=== PATIENT | male | born 1985 | race Caucasian/White ===

== ENCOUNTER → 2019-05-30 08:18 | Outpatient (BNVA) | payer MEDICARE, MEDICAID, SELFPAY | PROVIDERS: Family Provider Internal Medicine; PCP Internal Medicine; Visit Provider Specialist | DX: F31.9 Bipolar disorder, unspecified (principal) | CPT/HCPCS: 96372 ==

== ENCOUNTER → 2019-08-29 08:03 | Outpatient (BNVA) | payer MEDICARE, MEDICAID, SELFPAY | PROVIDERS: Family Provider Internal Medicine; PCP Internal Medicine; Visit Provider Specialist | DX: F52.8 Other sexual dysfunction not due to a substance or known physiological condition (principal) | CPT/HCPCS: 96372 ==

== ENCOUNTER 2019-10-15 17:00 | Emergency (ER) | payer MEDICARE, MEDICAID, SELFPAY ==
[2019-10-15 17:09] VITALS: BP 111/64; PULSE 112; RESP 18; TEMP 36.8; O2SAT 97
--- NOTE | 2019-10-15 18:13 | W.ED.NAVMDI ---
HPI - Nausea/Vomiting/Diarrhea General: Chief complaint: Nausea/Vomiting/Diarrhea Stated complaint: n/v Time Seen by Provider: 10/15/19 18:02 Source: patient and family Mode of arrival: ambulatory Limitations: no limitations History of Present Illness: HPI Narrative: 33-year-old male with a history of autism family states has had decreased appetite and complain abdominal pain over the last 2 days. Patient has had normal bowel movements. Patient states to me that his abdomen is hurting diffusely. He has had no vomiting but states he just does not feel like eating. Denies any worsening or improving factors. Associated nausea: Yes Associated symtoms: Reports nausea; Denies chest pain, dysuria or headache(s) Review of Systems Const: Denies: fever(s), chills, body aches or change in appetite Eyes: Denies: blurry vision or eye discomfort ENMT: Denies: throat pain or dental pain Card: Denies: chest pain Resp: Denies: dyspnea GI: Reports: abdominal pain, nausea and vomiting : Denies: dysuria Musc: Denies: neck pain or back pain Skin/Breast: Denies: rash Neuro: Denies: headache(s) Psych: Denies: depression Chemo/Lymph: Denies: easy bruising All/Imm: Denies: urticaria Physical Exam Const: COMMON NORMALS: no acute distress, patient oriented x3 and healthy appearing HENMT: COMMON NORMALS: normocephalic and atraumatic HEAD & SCALP: normocephalic and atraumatic Eye: COMMON NORMALS: Equal, round and reactive pupils present and EOMs intact bilaterally PUPIL: Yes Equal, round and reactive pupils present Neck/C-Spine: COMMON NORMALS: full ROM and supple Chest: COMMONS NORMALS: normal inspection of the chest and normal palpation of entire chest wall Resp: COMMON NORMALS: normal respiratory effort, No retractions, No use of accessory muscles and clear to auscultation bilaterally AUSCULTATION: clear to auscultation bilaterally Cardio: COMMON NORMALS: regular rate, regular rhythm and No murmurs present (Cardio) RATE: regular rate RHYTHM: regular rhythm GI: COMMON NORMALS: Normal to inspection, nondistended, normoactive bowel sounds present, Soft to palpation, non-tender and no masses PALPATION: Yes Soft to palpation Extremity: COMMON NORMALS: normal to inspection and full ROM Neuro: COMMON NORMALS: patient oriented x3, moves all extremities and no focal motor deficits Psych: COMMON NORMALS: mental status grossly normal, Normal thought process present and cooperative THOUGHT PROCESS: Normal thought process present Skin: COMMON NORMALS: no rashes or lesions noted and no wounds GENERAL SKIN EXAM: no rashes or lesions noted Course Vital Signs: Vital signs: Vital Signs Temperature 98.3 F 10/15/19 17:09 Pulse Rate 90 10/15/19 20:06 Respiratory Rate 18 10/15/19 20:06 Blood Pressure 111/64 10/15/19 17:09 Pulse Oximetry 99 10/15/19 20:06 MDM - Nausea/Vomiting/Diarrhea MDM Narrative: Medical decision making narrative: Librado presents here with abdominal pain along with nausea decreased appetite. He feels improved after Zofran and CT scan and lab work here are all normal. He is stable for discharge will prescribe Zofran for home. Is no signs of acute surgical process. He is to follow-up with his primary care doctor in 3 to 5 days and return to ER if worsening. Lab Data: Labs: Lab Results 10/15/19 10/15/19 Range/Units 18:25 18:25 WBC 6.9 (4.0-10.0) 10^3/ uL RBC 4.78 (4.1-5.3) 10^6/u L Hgb 13.4 (11.7-16.6) g/dL Hct 39.9 L (42.0-52.0) % MCV 83.5 (80-94) fL MCH 28.0 (28.0-34.0) pg MCHC 33.6 (30.0-36.0) g/dL RDW 12.5 (12.1-15.1) % Plt Count 244 (130-400) 10^3/c mm MPV 10.2 (7.4-10.4) fL Neut % (Auto) 64.5 % Lymph % (Auto) 25.7 % [place] % (Auto) 6.9 % Eos % (Auto) 2.3 % Baso % (Auto) 0.3 % Neut # (Auto) 4.47 (1.8-7.7) 10^3/u L Lymph # (Auto) 1.8 (0.8-4.8) 10^3/u L [place] # (Auto) 0.5 (0.2-0.9) 10^3/u L Eos # (Auto) 0.2 (0.0-0.8) 10^3/u L Baso # (Auto) 0.0 (0.0-0.1) 10^3/u L Nucleated RBC % (a uto) 0 % Nucleated RBCs # 0.0 /100WBC Sodium 139 (136-145) mmol/L Potassium 3.4 L (3.5-5.1) mmol/L Chloride 103 (98-107) mmol/L Carbon Dioxide 25 (22-29) mmol/L Anion Gap 14.4 (5-19) BUN 8 (6-20) mg/dL Creatinine 0.7 (0.7-1.2) mg/dL GFR Calculation 129.9 (90-130) mL/min Glucose 113 (65-115) mg/dL Calculated Osmolal ity 285 (285-295) mOsm/k g Calcium 8.7 (8.5-10.5) mg/dL Total Bilirubin 0.8 (0.15-1.2) mg/dL AST 15 (0-40) U/L ALT 11 (0-41) U/L Alkaline Phosphata se 109 (40-130) IU/L Total Protein 7.2 (6.6-8.7) g/dL Albumin 4.4 (3.5-5.2) g/dL Globulin 2.8 (1.3-4.6) g/dL Lipase 40 (13-60) U/L Imaging Data^: CT Abd/Pel: Radiologist's impression: [place] [address] CT Scan Report Signed Patient: Librado Graves Unit #: [id number] : 1985 Age/Sex: 33 / M ADM Date: 10/15/19 Loc: ER Room/Bed: Attending Dr: Ordering Provider/Ordering MD: Anjali Cadet MD Date of Service: 10/15/19 Procedure(s): CT abdomen pelvis w con* [id number] Accession Number(s): [id number] Report Number: [id number] PROCEDURE INFORMATION: Exam: CT Abdomen And Pelvis With Contrast Exam date and time: 10/15/2019 6:37 PM Age: 33 years old Clinical indication: Abdominal pain; Generalized; Patient HX: Vomiting, abd pain x 3 days TECHNIQUE: Imaging protocol: Computed tomography of the abdomen and pelvis with intravenous contrast. Radiation optimization: All CT scans at this facility use at least one of these dose optimization techniques: automated exposure control; mA and/or kV adjustment per patient size (includes targeted exams where dose is matched to clinical indication); or iterative reconstruction. Contrast material: OMNIPAQUE 300; Contrast volume: 95 ml; Contrast route: INTRAVENOUS (IV); COMPARISON: CT abdomen pelvis w con* [id number] 01/17/2017 7:58 PM RADIATION DOSE METRICS: Total DLP (mGy-cm): 1059.33 FINDINGS: There is minimal atelectasis within the lung bases. The visualized bony structures are unremarkable. There is no liver mass. There is no intrahepatic biliary dilatation. No gallstones are seen within the gallbladder. The pancreas is unremarkable. The spleen is unremarkable. There is no adrenal mass. There is no hydronephrosis. There are no renal calculi. There is no perinephric stranding. There is no renal mass. The aorta is normal in caliber. The IVC is normal in caliber. There is no retroperitoneal adenopathy. Stable small mesenteric lymph nodes are present especially in the right mid abdomen. The stomach is unremarkable. The small bowel loops in the upper abdomen are nondistended with no bowel wall thickening. The colonic structures within the upper abdomen are normal in caliber with no bowel wall thickening. Within the pelvis: A normal appendix is seen within the right lower quadrant. The bladder is nondistended. The prostate gland and seminal vesicles are normal. There is no free fluid within the pelvis. There is no inguinal adenopathy. There is no pelvic adenopathy. The bowel loops within the pelvis are unremarkable. CT/CT abdomen pelvis w con* [id number] IMPRESSION: 1. No evidence for bowel obstruction or bowel wall thickening. 2. No acute inflammatory process is seen within the abdomen or pelvis. 3. Stable small mesenteric lymph nodes in the right mid abdomen. Discharge Plan Discharge Patient Disposition: Home, Self-Care Clinical Impression: Abdominal pain Qualifiers: Abdominal location: generalized Qualified Code(s): R10.84 - Generalized abdominal pain Condition: Stable Prescriptions: New ondansetron 4 mg tablet,disintegrating 4 mg PO Q6H PRN (Reason: nausea and vomiting) Qty: 14 RF: 0 No Action olanzapine 15 mg tablet PO RF: 0 risperidone 2 mg tablet 2 mg PO RF: 0 trazodone 50 mg tablet PO RF: 0 clonidine HCl 0.1 mg tablet 0.1 mg PO RF: 0 clonazepam 0.5 mg tablet PO RF: 0 ziprasidone HCl 40 mg capsule 40 mg PO RF: 0 medroxyprogesterone 150 mg/mL suspension IM RF: 0 Discharge Orders: Discharge Order (Routine); Ordered 10/15/19 Ordered By: Anjali Cadet Referrals: Brianna Watt MD [Primary Care Provider] - 1-3 days Discharge Diet: Advance as tolerated Discharge Activity: Resume usual activity Patient Instructions: Abdominal Pain (ED) Discharge Date/Time: 10/15/19 20:08 Coding Level of Care Code ED Architectural Examiner for [employer]ito Fwd Exam Comprehensive
--- NOTE | 2019-10-15 18:16 | CTR_ITS ---
PROCEDURE INFORMATION: Exam: CT Abdomen And Pelvis With Contrast Exam date and time: 10/15/2019 6:37 PM Age: 33 years old Clinical indication: Abdominal pain; Generalized; Patient HX: Vomiting, abd pain x 3 days TECHNIQUE: Imaging protocol: Computed tomography of the abdomen and pelvis with intravenous contrast. Radiation optimization: All CT scans at this facility use at least one of these dose optimization techniques: automated exposure control; mA and/or kV adjustment per patient size (includes targeted exams where dose is matched to clinical indication); or iterative reconstruction. Contrast material: OMNIPAQUE 300; Contrast volume: 95 ml; Contrast route: INTRAVENOUS (IV); COMPARISON: CT abdomen pelvis w con* [id number] 01/17/2017 7:58 PM RADIATION DOSE METRICS: Total DLP (mGy-cm): 1059.33 FINDINGS: There is minimal atelectasis within the lung bases. The visualized bony structures are unremarkable. There is no liver mass. There is no intrahepatic biliary dilatation. No gallstones are seen within the gallbladder. The pancreas is unremarkable. The spleen is unremarkable. There is no adrenal mass. There is no hydronephrosis. There are no renal calculi. There is no perinephric stranding. There is no renal mass. The aorta is normal in caliber. The IVC is normal in caliber. There is no retroperitoneal adenopathy. Stable small mesenteric lymph nodes are present especially in the right mid abdomen. The stomach is unremarkable. The small bowel loops in the upper abdomen are nondistended with no bowel wall thickening. The colonic structures within the upper abdomen are normal in caliber with no bowel wall thickening. Within the pelvis: A normal appendix is seen within the right lower quadrant. The bladder is nondistended. The prostate gland and seminal vesicles are normal. There is no free fluid within the pelvis. There is no inguinal adenopathy. There is no pelvic adenopathy. The bowel loops within the pelvis are unremarkable. CT/CT abdomen pelvis w con* [id number] IMPRESSION: 1. No evidence for bowel obstruction or bowel wall thickening. 2. No acute inflammatory process is seen within the abdomen or pelvis. 3. Stable small mesenteric lymph nodes in the right mid abdomen. Radiation Dose CTDIVOL = (mGy): DLP = 1059.33 (mGy-cm)
[2019-10-15] MEDS: sodium chloride 0.9% 1,000 ML 999 ML IV (18:21)
[2019-10-15] MEDS: ondansetron 2 mg/ML SDV 2 mL 4 MG IVP (18:22)
[2019-10-15 18:42] LABS: Basophils % 0.3 %; Eosinophils # 0.2 10^3/uL (0.0-0.8); Eosinophils % 2.3 %; Hematocrit 39.9 % (42.0-52.0); Hemoglobin 13.4 g/dL (11.7-16.6); Lymphocytes # 1.8 10^3/uL (0.8-4.8); Lymphocytes % 25.7 %; Mean Corpuscular HGB Conc 33.6 g/dL (30.0-36.0); Mean Corpuscular Volume 83.5 fL (80-94); Mean Platelet Volume 10.2 fL (7.4-10.4); Monocytes # 0.5 10^3/uL (0.2-0.9); Monocytes % 6.9 %; Neutrophils # 4.47 10^3/uL (1.8-7.7); Neutrophils % 64.5 %; Nucleated Red Blood Cells % 0 %; Platelet Count 244 10^3/cmm (130-400); Red Blood Count 4.78 10^6/uL (4.1-5.3); Red Cell Distribution Width 12.5 % (12.1-15.1); White Blood Count 6.9 10^3/uL (4.0-10.0)
[2019-10-15 18:52] LABS: Alanine Aminotransferase 11 U/L (0-41); Albumin Level 4.4 g/dL (3.5-5.2); Alkaline Phosphatase 109 IU/L (40-130); Anion Gap 14.4 (5-19); Aspartate Amino Transferase 15 U/L (0-40); Blood Urea Nitrogen 8 mg/dL (6-20); Calcium 8.7 mg/dL (8.5-10.5); Carbon Dioxide 25 mmol/L (22-29); Chloride 103 mmol/L (98-107); Globulin 2.8 g/dL (1.3-4.6); Glomerular Filtration Rate 129.9 mL/min (90-130); Glucose 113 mg/dL (65-115); Lipase 40 U/L (13-60); Osmolality Calculated 285 mOsm/kg (285-295); Potassium 3.4 mmol/L (3.5-5.1); Sodium 139 mmol/L (136-145); Total Bilirubin 0.8 mg/dL (0.15-1.2); Total Protein 7.2 g/dL (6.6-8.7)
[2019-10-15 20:06] VITALS: PULSE 90; RESP 18; O2SAT 99
== END 2019-10-15 20:08 | disposition home or self-care (01) ==
PROVIDERS: Emergency Provider Emergency Medicine; PCP Internal Medicine
DX: R10.84 Generalized abdominal pain (principal); F84.0 Autistic disorder
CPT/HCPCS: 12345; 74177; 80053; 83690; 85025; 96361; 96374; 96375; 99282; 99283; J2405; J7030; Q9967

== ENCOUNTER → 2019-11-29 07:47 | Outpatient (BNVA) | payer MEDICARE, MEDICAID, SELFPAY | PROVIDERS: PCP Internal Medicine; Visit Provider Specialist | DX: F52.8 Other sexual dysfunction not due to a substance or known physiological condition (principal) | CPT/HCPCS: 96372 ==

== ENCOUNTER → 2020-02-28 08:43 | Outpatient (BNVA) | payer MEDICARE, MEDICAID, SELFPAY | PROVIDERS: PCP Internal Medicine; Visit Provider Specialist | DX: F52.8 Other sexual dysfunction not due to a substance or known physiological condition (principal); Z71.89 Other specified counseling | CPT/HCPCS: 96372 ==

== ENCOUNTER → 2020-05-30 07:56 | Outpatient (BNVA) | payer MEDICARE, MEDICAID, SELFPAY | PROVIDERS: PCP Internal Medicine; Visit Provider Specialist | DX: F31.9 Bipolar disorder, unspecified (principal); F84.0 Autistic disorder; Z71.89 Other specified counseling | CPT/HCPCS: 96372 ==

== ENCOUNTER → 2020-09-03 08:21 | Outpatient (BNVA) | payer MEDICARE, MEDICAID, SELFPAY | PROVIDERS: PCP Internal Medicine; Visit Provider Specialist | DX: F31.9 Bipolar disorder, unspecified (principal) | CPT/HCPCS: 96372 ==

== ENCOUNTER → 2020-12-04 08:05 | Outpatient (BNVA) | payer MEDICARE, MEDICAID, SELFPAY | PROVIDERS: PCP Internal Medicine; Visit Provider Specialist | DX: F52.8 Other sexual dysfunction not due to a substance or known physiological condition (principal); F31.9 Bipolar disorder, unspecified | CPT/HCPCS: 96372 ==

== ENCOUNTER → 2021-03-04 08:03 | Outpatient (BNVA) | payer MEDICARE, MEDICAID, SELFPAY | PROVIDERS: PCP Internal Medicine; Visit Provider Specialist | DX: F31.9 Bipolar disorder, unspecified (principal); F84.0 Autistic disorder | CPT/HCPCS: 96372 ==

== ENCOUNTER → 2021-06-03 08:06 | Outpatient (BNVA) | payer MEDICARE, MEDICAID, SELFPAY | PROVIDERS: PCP Internal Medicine; Visit Provider Specialist | DX: F84.0 Autistic disorder (principal); Z71.89 Other specified counseling | CPT/HCPCS: 96372 ==

== ENCOUNTER → 2021-09-02 07:47 | Outpatient (BNVA) | payer MEDICARE, MEDICAID, SELFPAY | PROVIDERS: PCP Internal Medicine; Visit Provider Specialist | DX: F31.9 Bipolar disorder, unspecified (principal); F84.0 Autistic disorder | CPT/HCPCS: 96372 ==

== ENCOUNTER → 2021-12-03 07:59 | Outpatient (BNVA) | payer MEDICARE, MEDICAID, SELFPAY | PROVIDERS: PCP Internal Medicine; Visit Provider Specialist | DX: F84.0 Autistic disorder (principal); F31.9 Bipolar disorder, unspecified | CPT/HCPCS: 96372 ==

== ENCOUNTER → 2022-03-04 08:16 | Outpatient (BNVA) | payer MEDICARE, MEDICAID, SELFPAY | PROVIDERS: PCP Internal Medicine; Visit Provider Specialist | DX: Z71.89 Other specified counseling (principal) | CPT/HCPCS: 96372 ==

== ENCOUNTER → 2022-05-28 07:47 | Outpatient (BNVA) | payer MEDICARE, MEDICAID, SELFPAY | PROVIDERS: PCP Internal Medicine; Visit Provider Specialist | DX: F31.9 Bipolar disorder, unspecified (principal); F84.0 Autistic disorder | CPT/HCPCS: 96372 ==

== ENCOUNTER → 2022-09-01 11:56 | Outpatient (BNVA) | payer MEDICARE, MEDICAID, SELFPAY | PROVIDERS: PCP Internal Medicine; Visit Provider Specialist | DX: Z71.89 Other specified counseling (principal) | CPT/HCPCS: 96372; G0463 ==

== ENCOUNTER 2022-09-08 11:17 | Outpatient (CLI) | payer MEDICARE, MEDICAID, SELFPAY ==
--- NOTE | 2022-09-08 11:42 | XR_ITS ---
WS: [id number] XR KUB [id number] REASON FOR EXAM: DIARRHEA, CONSTIPATION, ABDOMINAL PAIN FINDINGS: No free air or retroperitoneal air. Moderately redundant sigmoid colon with segment of mild dilatation. Bowel gas pattern otherwise unrem arkable. No urinary tract calculi identified. No organomegaly or other mass. XR/XR KUB [id number] IMPRESSION: No significant abnormality.
== END 2022-09-08 11:18 | disposition home or self-care (01) ==
PROVIDERS: PCP Internal Medicine; Visit Provider Nurse Practitioner Family
DX: R19.7 Diarrhea, unspecified (principal); K59.00 Constipation, unspecified; R10.11 Right upper quadrant pain
CPT/HCPCS: 74018

== ENCOUNTER 2022-09-09 08:57 | Outpatient (CLI) | payer MEDICARE, MEDICAID, SELFPAY ==
--- NOTE | 2022-09-09 09:09 | CT_ITS ---
WS: [id number] CT ABDOMEN AND PELVIS WITH CONTRAST HISTORY: ABNORMAL ABDOMINAL IMAGING TECHNIQUE: Imaging performed of the abdomen and pelvis with IV contrast. Single phase imaging of the abdomen. Coronal and sagittal reformats are submitted. All CT scans at [facility] use at [facility] one of these dose optimization techniques: automated exposure control; mA and/or kV adjustment per patient size (includes targeted exams where dose is matched to clinical indication); or iterative re construction. IV CONTRAST: Omnipaque 350; 100 mL IV. Oral contrast: No DLP: 819.66 mGy.cm COMPARISON: 10/15/2019 Lower thorax: Lung bases are clear. Heart is normal size. No hiatal hernia. Liver/biliary system: Normal size with no intrahepatic dilatation. For a slight decrease in attenuati on in the liver along the falciform ligament typical for hepatic steatosis. Gallbladder: Gallbladder is normally distended. There is mild diffuse wall thickening without adjacen t inflammation. No stones are identified by CT. Pancreas: Normal size pancreas and pancreatic duct. No adjacent inflammation. Spleen: Normal size spleen. No mass or infarct. Adrenal glands: Normal. Right kidney: Normal. Left kidney: Normal. Aorta: Normal. Lymphadenopathy: Numerous RIGHT lower quadrant lymph nodes. These are mildly hypervascular and rounde d but very similar to the prior study from 2017. Largest lymph node is 9 mm. Free fluid: None. GI tract: Nondistended stomach. No small bowel obstruction. There is a cluster of small bowel loops i n the RIGHT quadrant that are not . This area is difficult to evaluate without oral contrast . There is no obstructive pattern. Abdominal wall: Unremarkable abdominal wall. No hernia. Pelvis: No free fluid or adenopathy within the pelvis. Bones: Unremarkable. CT/CT abdomen pelvis w con* [id number] IMPRESSION: 1. Abnormal gallbladder. There is mild diffuse gallbladder wall thickening. No adjacent inflammation. May be chronic cholecystitis or wall thickening due to hepatocellular disease. Consider follow-up by ultrasound. 2. No bile duct dilatation. 3. Normal appendix. 4. Numerous, subcentimeter RIGHT lower quadrant lymph nodes. Probably related to mesenteric adenitis. Very similar to the study from 2019. 5. GI tract is limited without oral contrast. Cluster small bowel loops in the RIGHT lower quadrant. Small bowel loops cannot be further evaluated without or al contrast. No obstructive pattern.
[2022-09-09] MEDS: iohexol 350 mg/mL 500 mL Btl (per mL) IV (09:32)
== END 2022-09-09 08:58 | disposition home or self-care (01) ==
LOC: RAD 08:58
PROVIDERS: PCP Internal Medicine; Visit Provider Nurse Practitioner Family
DX: R93.5 Abnormal findings on diagnostic imaging of other abdominal regions, including retroperitoneum (principal); R59.0 Localized enlarged lymph nodes; Q43.8 Other specified congenital malformations of intestine; R10.11 Right upper quadrant pain; R19.7 Diarrhea, unspecified; K59.00 Constipation, unspecified
CPT/HCPCS: 74177; Q9967

== ENCOUNTER 2022-09-18 07:13 | Outpatient (CLI) | payer MEDICARE, MEDICAID, SELFPAY ==
--- NOTE | 2022-09-18 07:20 | US_ITS ---
WS: [id number] RIGHT UPPER QUADRANT ULTRASOUND HISTORY: ABNORMAL ABDOMINAL IMAGING COMPARISON: 10 03/19/2017, 09/09/2022 Study is compromised by body habitus. Liver: 13.7 cm in length. Normal size. Mild hepatic steatosis. Portal Vein: Normal hepatopetal flow with monophasic waveform. Gallbladder: Normally distended. Gallbladder wall is top normal size at just less than 3 mm. There is a gallstone at the neck of the gallbladder. CBD: 0.3 cm Pancreas: Portions of the head and tail are obscured. The body is negative. Right kidney: 10.7 cm in length. Normal size and echogenicity. No hydronephrosis or mass. Aorta and IVC: Unremarkable abdominal aorta and IVC. No ascites. US/US abdomen limited [id number] IMPRESSION: 1. Cholelithiasis. Gallstone near the neck gallbladder. 2. No bile duct dilatation. 3. Mild hepatic steatosis.
== END 2022-09-18 07:14 | disposition home or self-care (01) ==
LOC: RAD 07:15
PROVIDERS: PCP Internal Medicine; Visit Provider Internal Medicine
DX: K80.20 Calculus of gallbladder without cholecystitis without obstruction (principal)
CPT/HCPCS: 76705

== ENCOUNTER 2022-11-01 16:55 | Emergency (ER) | payer MEDICARE, MEDICAID, SELFPAY ==
[2022-11-01 17:14] VITALS: BP 92/60; PULSE 79; RESP 18; TEMP 36.6; O2SAT 98; BMI 34.3
--- NOTE | 2022-11-01 17:48 | W.ED.ABDPA2 ---
HPI - Abdominal Pain General: Chief Complaint: Abdominal Pain Stated Complaint: severe abdomal pain, vomiting Time Seen by Provider: 11/01/22 17:29 History of Present Illness: 36-year-old male patient comes in today for complaints of abdominal pain. Patient lives at a [facility] and has been having some increased abdominal discomfort. Patient is known to have gallstones. Patient's mother is at bedside and states last night the caretakers at the living center called her because he had had increased pain and discomfort. Patient is also had had no bowel movement since Thursday. Patient appears nontoxic at this time. Patient does endorse abdominal pain, but mother states he is not acting like he is in pain at this time, and patient does not appear in pain. Patient has autism spectrum disorder, intellectual disability. Associated Symptoms: Denies fever(s) and vomiting (Occasional) Review of Systems Const: Denies: fever(s) GI: Reports: abdominal pain; Denies: vomiting (Occasional) PFSH ED PFSH: Medical History Autism Bipolar disorder Family History Other CAD (coronary artery disease) Cancer Diabetes Hypertension Myocardial infarction Social History Smoking and tobacco status: never smoked Alcohol intake: never Substance/Drug Use: never Physical Exam Const: COMMON NORMALS: alert HENMT: COMMON NORMALS: normocephalic HEAD & SCALP: normocephalic MOUTH: Normal oral and palatal mucosa present Neck/C-Spine: COMMON NORMALS: full ROM Resp: COMMON NORMALS: normal respiratory effort Cardio: COMMON NORMALS: regular rate RATE: regular rate GI: COMMON NORMALS: Soft to palpation and non-tender PALPATION: Yes Soft to palpation : COMMON NORMALS: Yes no CVA tenderness BLADDER/KIDNEY EXAM: Yes no CVA tenderness Back/Pelvis: COMMON NORMALS: no CVA tenderness Extremity: COMMON NORMALS: no pedal edema Neuro: SENSORIUM/ORIENTATION: Yes alert Skin: COMMON NORMALS: turgor normal GENERAL SKIN EXAM: turgor normal Course Vital Signs: Vital signs: Vital Signs Temperature 97.8 F 11/01/22 17:14 Pulse Rate 79 11/01/22 17:14 Respiratory Rate 16 11/01/22 17:54 Blood Pressure 92/60 11/01/22 17:14 Pulse Oximetry 98 11/01/22 17:14 Oxygen Delivery Me thod Room Air 11/01/22 17:14 MDM - Abdominal Pain Medical Decision Making Patient comes in today for complaints of abdominal pain. Patient does have a history of gallstones and mother was concerned for exacerbation of his gallbladder disease. On exam patient appears nontoxic and in no significant pain. Abdomen is soft with no tenderness. Bowel sounds were active. Skin was warm and dry. Vital signs were normal. Differential diagnosis includes not limited to constipation, gallbladder disease, gastritis, pancreatitis, urinary tract infection. Laboratory values were unremarkable. KUB noted severe colonic stool burden. Believe the patient probably has some constipation. Patient was given a dose of Constulose and milk of magnesia in the emergency department. Patient was written prescriptions for MiraLAX to take daily to help prevent constipation, and milk of magnesia to use as needed for no bowel movement after 2 or 3 days. Mother reported understanding will pass that along to patient's caretakers. Recommend follow-up to the ER as needed. Lab Data 11/01/22 18:18 11/01/22 18:18 Labs/Radiology: Radiology Impressions KUB X-Ray 11/01/22 17:54 IMPRESSION: Severe colonic stool burden. Laboratory Results WBC 9.4 10^3/uL (4.0-10.0) 11/01/22 18:18 RBC 4.76 10^6/uL (4.1-5.3) 11/01/22 18:18 Hgb 13.2 g/dL (11.7-16.6) 11/01/22 18:18 Hct 39.2 % (42.0-52.0) L 11/01/22 18:18 MCV 82.4 fl (80-94) 11/01/22 18:18 MCH 27.7 pg (28.0-34.0) L 11/01/22 18:18 MCHC 33.7 g/dL (30.0-36.0) 11/01/22 18:18 RDW 12.8 % (12.1-15.1) 11/01/22 18:18 Plt Count 239 10^3/cmm (130-400) 11/01/22 18:18 MPV 10.3 fL (7.4-10.4) 11/01/22 18:18 Neut % (Auto) 64.4 % 11/01/22 18:18 Lymph % (Auto) 25.8 % 11/01/22 18:18 [place] % (Auto) 7.3 % 11/01/22 18:18 Eos % (Auto) 2.0 % 11/01/22 18:18 Baso % (Auto) 0.2 % 11/01/22 18:18 Neut # (Auto) 6.04 10^3/uL (1.8-7.7) 11/01/22 18:18 Lymph # (Auto) 2.4 10^3/uL (0.8-4.8) 11/01/22 18:18 [place] # (Auto) 0.7 10^3/uL (0.2-0.9) 11/01/22 18:18 Eos # (Auto) 0.2 10^3/uL (0.0-0.8) 11/01/22 18:18 Baso # (Auto) 0.0 10^3/uL (0.0-0.1) 11/01/22 18:18 Nucleated RBC % (auto) 0 % 11/01/22 18:18 Nucleated RBCs # 0.0 /100WBC 11/01/22 18:18 Sodium 139 mmol/L (136-145) 11/01/22 18:18 Potassium 3.5 mmol/L (3.5-5.1) 11/01/22 18:18 Chloride 103 mmol/L (98-107) 11/01/22 18:18 Carbon Dioxide 26 mmol/L (22-29) 11/01/22 18:18 Anion Gap 13.5 (5-19) 11/01/22 18:18 BUN 9 mg/dL (6-20) 11/01/22 18:18 Creatinine 0.9 mg/dL (0.7-1.2) 11/01/22 18:18 GFR Calculation 95.5 mL/min (90-130) 11/01/22 18:18 Glucose 91 mg/dL (65-115) 11/01/22 18:18 Calculated Osmolality 286 mOsm/kg (285-295) 11/01/22 18:18 Calcium 8.8 mg/dL (8.5-10.5) 11/01/22 18:18 Total Bilirubin 0.5 mg/dL (0.15-1.2) 11/01/22 18:18 AST 15 U/L (0-40) 11/01/22 18:18 ALT 18 U/L (0-41) 11/01/22 18:18 Alkaline Phosphatase 93 U/L (40-130) 11/01/22 18:18 Total Protein 6.9 g/dL (6.6-8.7) 11/01/22 18:18 Albumin 4.1 g/dL (3.5-5.2) 11/01/22 18:18 Globulin 2.8 g/dL (1.3-4.6) 11/01/22 18:18 Lipase 38 U/L (13-60) 11/01/22 18:18 Discharge Plan Discharge Patient Disposition: Home Clinical Impression: Constipation Qualifiers: Constipation type: unspecified constipation type Qualified Code(s): K59.00 - Constipation, unspecified Condition: Stable Prescriptions: New Miralax 17 gram/dose powder 17 g PO DAILY Qty: 510 0RF Milk of Magnesia 400 mg/5 mL suspension 20 ml PO BID PRN (Reason: constipation) Qty: 355 0RF No Action olanzapine 15 mg tablet PO risperidone 2 mg tablet 2 mg PO trazodone 50 mg tablet PO clonidine HCl 0.1 mg tablet 0.1 mg PO clonazepam 0.5 mg tablet PO ziprasidone HCl 40 mg capsule 40 mg PO medroxyprogesterone 150 mg/mL suspension IM ondansetron 4 mg tablet,disintegrating 4 mg PO Q6H PRN (Reason: nausea and vomiting) Qty: 14 0RF Discharge Orders: Discharge ED (Routine); Ordered 11/01/22 Ordered By: Wiley Melendez Referrals: Brianna Watt MD [Primary Care Provider] - Discharge Diet: Usual diet Discharge Activity: Increase activity as tolerated Patient Instructions: Constipation (ED) Activity Restrictions/Additional Instructions: Encourage plenty of water and fluids. Healthy diet and activity. Offer foods high in fiber such as fresh fruits and vegetables and whole grains. Follow-up with primary care for further instructions. Return to ED for worsening symptoms such as inability to hold fluids down, high fever, or new concerns. Coding Level of Care Code ED Rural Service Engineer for Lobito Matias
[2022-11-01 17:54] VITALS: RESP 16
--- NOTE | 2022-11-01 17:54 | XRR_ITS ---
PROCEDURE INFORMATION: Exam: XR Abdomen Exam date and time: 11/01/2022 6:08 PM Age: 36 years old Clinical indication: Abdominal pain; Generalized; Additional info: Constipation TECHNIQUE: Imaging protocol: Radiologic exam of the abdomen. Views: Frontal supine view of the abdomen. 1 View. COMPARISON: CT abdomen pelvis w con* [id number] 09/09/2022 9:21 AM FINDINGS: Gastrointestinal tract: Severe colonic stool burden. No bowel dilation. Bones/joints: Unremarkable. XR/XR KUB [id number] IMPRESSION: Severe colonic stool burden.
[2022-11-01 18:28] LABS: Basophils % 0.2 %; Eosinophils # 0.2 10^3/uL (0.0-0.8); Hematocrit 39.2 % (42.0-52.0); Hemoglobin 13.2 g/dL (11.7-16.6); Lymphocytes # 2.4 10^3/uL (0.8-4.8); Lymphocytes % 25.8 %; Mean Corpuscular HGB Conc 33.7 g/dL (30.0-36.0); Mean Corpuscular Hemoglobin 27.7 pg (28.0-34.0); Mean Corpuscular Volume 82.4 fl (80-94); Mean Platelet Volume 10.3 fL (7.4-10.4); Monocytes # 0.7 10^3/uL (0.2-0.9); Monocytes % 7.3 %; Neutrophils # 6.04 10^3/uL (1.8-7.7); Neutrophils % 64.4 %; Nucleated Red Blood Cells % 0 %; Platelet Count 239 10^3/cmm (130-400); Red Blood Count 4.76 10^6/uL (4.1-5.3); Red Cell Distribution Width 12.8 % (12.1-15.1); White Blood Count 9.4 10^3/uL (4.0-10.0)
[2022-11-01] MEDS: HYDROcodone-acetaminophen 5-325 mg Tablet 1 TAB PO (18:35)
[2022-11-01] MEDS: ondansetron 4 MG Tablet PO (18:35)
[2022-11-01 19:04] LABS: Alanine Aminotransferase 18 U/L (0-41); Albumin Level 4.1 g/dL (3.5-5.2); Alkaline Phosphatase 93 U/L (40-130); Anion Gap 13.5 (5-19); Aspartate Amino Transferase 15 U/L (0-40); Blood Urea Nitrogen 9 mg/dL (6-20); Calcium 8.8 mg/dL (8.5-10.5); Carbon Dioxide 26 mmol/L (22-29); Chloride 103 mmol/L (98-107); Globulin 2.8 g/dL (1.3-4.6); Glomerular Filtration Rate 95.5 mL/min (90-130); Glucose 91 mg/dL (65-115); Lipase 38 U/L (13-60); Osmolality Calculated 286 mOsm/kg (285-295); Potassium 3.5 mmol/L (3.5-5.1); Sodium 139 mmol/L (136-145); Total Bilirubin 0.5 mg/dL (0.15-1.2); Total Protein 6.9 g/dL (6.6-8.7)
[2022-11-01] MEDS: lactulose oral liq 20 gm/30 mL UDC PO (19:19)
[2022-11-01] MEDS: magnesium hydroxide 30 mL UDC PO (19:19)
[2022-11-01 19:22] VITALS: BP 120/84; PULSE 75; RESP 18; O2SAT 97
== END 2022-11-01 19:25 | disposition home or self-care (01) ==
PROVIDERS: Emergency Provider Nurse Practitioner Family; PCP Internal Medicine
DX: K59.00 Constipation, unspecified (principal); F84.0 Autistic disorder
CPT/HCPCS: 36415; 74018; 80053; 83690; 85025; 99284; Q0162

== ENCOUNTER → 2022-11-12 14:10 | Outpatient (BNVA) | payer MEDICARE, MEDICAID, SELFPAY | PROVIDERS: PCP Internal Medicine; Visit Provider Surgery | DX: K80.20 Calculus of gallbladder without cholecystitis without obstruction (principal) | CPT/HCPCS: 99203 ==

== ENCOUNTER 2022-11-13 10:56 | Day surgery (SDC) | payer MEDICARE, MEDICAID, SELFPAY ==
[2022-11-12 17:21] VITALS: BMI 27.1
[2022-11-13] VITALS (9 sets, daily range): BP systolic 113–160; BP diastolic 58–118; PULSE 60–94; RESP 16–18; TEMP 36.1–36.8; O2SAT 94–100
[2022-11-13] MEDS: sodium chloride 0.9% 1,000 ML 30 ML IV (11:55)
--- NOTE | 2022-11-13 12:05 | W.PM.OPSUD ---
Surgery/Procedure H&P Update DATE OF PROCEDURE: November 13, 2022 DATE H&P PERFORMED: 11/12/22 H&P UPDATE INFORMATION: I have reviewed H&P completed within last 30 days, I have examined patient prior to procedure and No changes to prior documentation PLANNED PROCEDURE: Operation Date: 11/13/22 14:35 Proposed Procedures p Laparoscopic Cholecystectomy 82454,K80.20(Not Applicable) - Krishna Whatley,
--- NOTE | 2022-11-13 12:09 | ANES.PREANE2 ---
Pre-Anesthetic Assessment Height/Weight: Height 1.83 m Weight 90.718 kg Temp Pulse Resp BP Pulse Ox O2 Del Method 98.2 F 73 18 113/77 96 Room Air 11/13/22 11:24 11/13/22 11:24 11/13/22 11:24 11/13/22 11:24 11/13/22 11:24 11/13/22 11:25 Operation Date: 11/13/22 14:35 Proposed Procedures p Laparoscopic Cholecystectomy 76229,K80.20(Not Applicable) - Krishna Whatley DO Familial anesthetic complications: none Was Beta Marry taken within 24 hours: N/A Was Clonidine taken within 24 hours: N/A Last intake: Intake Last Liquid Date 11/12/22 Last Liquid Time 19:00 Last Solid Date 11/12/22 Last Solid Time 20:00 Social No alcohol and No tobacco Exam alert, oriented x 3, clear to auscultation bilaterally and regular rate & rhythm Airway Submandibular: within normal limits Cervical ROM: within normal limits Mallampati: Class II Dentition: chipped Neuropsych Bipolar Autism, mentally deficient Anesthetic Plan ASA status: 3 Anesthesia: General Medications/Allergies Home Medications Medication Instructions Recorded Confirmed Last Taken Type clonazepam 0.5 mg tablet 0.5 mg PO 1XD 08/29/19 11/12/22 11/13/22 History clonidine HCl 0.1 mg tablet 0.1 mg PO 3XD 08/29/19 11/12/22 11/13/22 History medroxyprogesterone 150 mg/mL mg IM 08/29/19 11/12/22 Unknown History intramuscular suspension olanzapine 15 mg tablet ea PO 08/29/19 11/12/22 Unknown History risperidone 2 mg tablet 2 mg PO 3XD 08/29/19 11/12/22 11/13/22 History trazodone 50 mg tablet 50 mg PO 2XD 08/29/19 11/12/22 11/13/22 History ziprasidone HCl 40 mg capsule 40 mg PO 2XD 08/29/19 11/12/22 11/13/22 History ondansetron 4 mg disintegrating 4 mg PO Q6H PRN nausea and 10/15/19 11/12/22 Unknown Rx tablet vomiting #14 tabs magnesium hydroxide 400 mg/5 mL 20 ml PO BID PRN constipation #355 11/01/22 11/12/22 11/10/22 Rx oral suspension (Milk of Magnesia) mL polyethylene glycol 3350 17 17 g PO DAILY #510 grams 11/01/22 11/12/22 Unknown Rx gram/dose oral powder (Miralax) escitalopram oxalate 5 mg tablet 5 mg PO DAILY 11/12/22 11/12/22 11/13/22 History (Lexapro) levocetirizine 5 mg tablet (Xyzal) 5 mg PO DAILY 11/12/22 11/12/22 11/12/22 History trazodone 100 mg tablet 100 mg PO BEDTIME 11/12/22 11/12/22 11/11/22 History Allergies Allergy/AdvReac Type Severity Reaction Status Date / Time No Known Allergies Allergy Verified 11/12/22 14:11 Current Medications Generic Name Dose Route Start Last Admin Trade Name Freq PRN Reason Stop Dose Admin Sodium Chloride 1,000 mls @ 30 mls/hr 11/13/22 11:15 11/13/22 11:55 Sodium Chloride 0.9% IV 11/14/22 11:14 30 mls/hr .Q24H DM Administration PFSH Anesthesia Medical History (Updated 11/13/22 @ 09:24 by Krishna Whatley DO) Autism Bipolar disorder Surgical History (Updated 11/13/22 @ 09:24 by Krishna Whatley DO) Hx of cataract surgery bilateral Family History Other CAD (coronary artery disease) Cancer Diabetes Hypertension Myocardial infarction Social History Smoking and tobacco status: never smoked Alcohol intake: never Substance/Drug Use: never Data Anesthesia Cardiac Studies: No Data to Display
[2022-11-13] MEDS: ceFAZolin 2,000 MG in sodium chloride 0.9% (plus) 50 ML 100 MG IV (13:21)
[2022-11-13] MEDS: lidocaine-epi 2% 20 mL INJ INJECTION (13:40)
--- NOTE | 2022-11-13 14:30 | P.OP_ITS ---
Operative Report Date of procedure: November 13, 2022 Pre-op diagnosis: Symptomatic cholelithiasis Post-op diagnosis: same Procedure done: Laparoscopic cholecystectomy Specimens removed/disposition: Gallbladder Surgeon: Dr. Krishna Whatley DO Anesthesia: General Estimated blood loss (mL): 20 Complications: None apparent Brief History: This very pleasant 37-year-old gentleman who presented my office with symptomatic cholelithiasis. Laparoscopic cholecystectomy is indicated. The risk benefits were [place] to documented. Procedure: Patient was wheeled into the operative room and placed on the OR table in a supine position. Abdomen was inspected prepped and draped in usual sterile fashion. Time-out was performed and all present were in agreement. A 15 blade scalp was used to make a stab incision in the left upper quadrant and intra- abdominal insufflation was achieved using a Veress needle. After localizing the tissue incisions were made and a 5 millimeter trocar was placed into the umbilicus as well as 2 in the right upper quadrant. A 12 millimeter trocar was placed in the epigastrium. Gallbladder was grasped and elevated. The triangle of Calot was carefully dissected using blunt dissection and electrocautery until the triangle of Calot clearly identified. The cystic duct was clipped proxim ally and double clipped distally. The duct was then ligated proximally. The cystic artery was doubly clipped and ligated. The gallbladder was then removed from the liver bed using electrocautery. The gallbladder was removed from the abdomen using an Endo-Catch bag through the epigastric incision. The liver bed was inspected and no bleeding was seen. The abdomen was irrigated and suctioned. All ports removed. Skin was washed and dried. Incisions were closed with 4-0 Monocryl in a subcuticular interrupted fashion. Skin glue was applied. Patient tolerated the procedure well.
== END 2022-11-13 16:00 | disposition home or self-care (01) ==
PROVIDERS: PCP Internal Medicine; Visit Provider Surgery
PROC: 0FT44ZZ Resection of Gallbladder, Percutaneous Endoscopic Approach (ICD-10-PCS; CPT 47562; principal; 2022-11-13 14:25)
DX: K80.10 Calculus of gallbladder with chronic cholecystitis without obstruction (principal); F84.0 Autistic disorder
CPT/HCPCS: 47562; 88304; J0690; J1100; J1170; J2250; J2405; J2704; J3010; J3490; J7030

== ENCOUNTER → 2022-11-26 14:04 | Outpatient (BNVA) | payer MEDICARE, MEDICAID, SELFPAY | PROVIDERS: PCP Internal Medicine; Visit Provider Surgery | DX: Z90.49 Acquired absence of other specified parts of digestive tract (principal); Z98.890 Other specified postprocedural states | CPT/HCPCS: 99024 ==

== ENCOUNTER → 2022-12-08 08:01 | Outpatient (BNVA) | payer MEDICARE, MEDICAID, SELFPAY | PROVIDERS: PCP Internal Medicine; Visit Provider Specialist | DX: F84.0 Autistic disorder (principal); R29.90 Unspecified symptoms and signs involving the nervous system; F31.9 Bipolar disorder, unspecified; F52.8 Other sexual dysfunction not due to a substance or known physiological condition | CPT/HCPCS: 96372; G0463 ==

== ENCOUNTER → 2023-03-09 08:42 | Outpatient (BNVA) | payer MEDICARE, MEDICAID, SELFPAY | PROVIDERS: PCP Internal Medicine; Visit Provider Specialist | DX: F52.8 Other sexual dysfunction not due to a substance or known physiological condition (principal); F31.73 Bipolar disorder, in partial remission, most recent episode manic | CPT/HCPCS: 96372; 99212 ==

== ENCOUNTER → 2023-06-12 09:02 | Outpatient (BNVA) | payer MEDICARE, MEDICAID, SELFPAY | PROVIDERS: PCP Internal Medicine; Visit Provider Specialist | DX: F52.8 Other sexual dysfunction not due to a substance or known physiological condition (principal); F31.73 Bipolar disorder, in partial remission, most recent episode manic; F84.0 Autistic disorder | CPT/HCPCS: 96372; G0463 ==

== ENCOUNTER → 2023-09-09 13:45 | Outpatient (BNVA) | payer MEDICARE, MEDICAID, SELFPAY | PROVIDERS: PCP Internal Medicine; Visit Provider Specialist | DX: F52.8 Other sexual dysfunction not due to a substance or known physiological condition (principal); F31.73 Bipolar disorder, in partial remission, most recent episode manic; F84.0 Autistic disorder | CPT/HCPCS: 96372; G0463 ==

== ENCOUNTER → 2023-12-11 13:30 | Outpatient (BNVA) | payer MEDICARE, MEDICAID, SELFPAY | PROVIDERS: PCP Internal Medicine; Visit Provider Specialist | DX: F52.8 Other sexual dysfunction not due to a substance or known physiological condition (principal); F31.73 Bipolar disorder, in partial remission, most recent episode manic; F84.0 Autistic disorder | CPT/HCPCS: 96372; G0463 ==

== ENCOUNTER → 2024-03-10 12:13 | Outpatient (BNVA) | payer MEDICARE, MEDICAID, SELFPAY | PROVIDERS: PCP Internal Medicine; Visit Provider Specialist | DX: F31.73 Bipolar disorder, in partial remission, most recent episode manic (principal); F84.0 Autistic disorder; F52.8 Other sexual dysfunction not due to a substance or known physiological condition | CPT/HCPCS: 96372; G0463 ==

== ENCOUNTER 2024-08-15 12:08 | Outpatient (CLI) | payer MEDICARE, MEDICAID, SELFPAY | END 2024-08-15 12:09 | disposition home or self-care (01) | LOC: SLEEP 12:10 | PROVIDERS: PCP Internal Medicine; Referring Provider Internal Medicine; Visit Provider Internal Medicine Pulmonary Disease | DX: G47.33 Obstructive sleep apnea (adult) (pediatric) (principal) | CPT/HCPCS: G0399 ==